=== PATIENT | female | born 1965 ===

== ENCOUNTER 2025-02-26 14:41 | Emergency (ER) | payer BC, SELFPAY ==
--- NOTE | ~2025-02-26 | XR_ITS ---
EXAMINATION: XR CHEST CLINICAL INFORMATION: Chest pain COMPARISON: None available. TECHNIQUE: 2 views of the chest were obtained. FINDINGS: There are coarse lung markings in the mid to lower right lung. Lungs are clear otherwise. Heart and the stomach contours are within normal limits. Left lateral hemidiaphragm is minimally obscured, probably due to subsegmental linear atelectasis. There is degenerative change in right glenohumeral joint with calcific density projecting over the medial right anatomic neck and surgical neck of the humerus. There is also focal increased density projecting in the right subcoracoid region. Mild degenerative changes are present in the bilateral AC joints. No other bony abnormalities are apparent. XR/XR chest 2V IMPRESSION: Coarse markings in the mid and lower right lung are probably chronic in nature, though atypical pneumonia or viral pneumonitis cannot be ruled out. Calcific densities projecting in the region of the right shoulder could represent soft tissue calcifications, intra-articular bodies, or hydroxyapatite deposition disease. Electronically signed by: Ken Bhatti MD 02/26/2025 03:25 PM EDT
--- NOTE | 2025-02-26 14:44 | ECG_ITS ---
Test Reason : cp Blood Pressure : */* mmHG Vent. Rate : 85 BPM Atrial Rate : 85 BPM P-R Int : 156 ms QRS Dur : 72 ms QT Int : 348 ms P-R-T Axes : 61 -31 67 degrees QTcB Int : 414 ms Normal sinus rhythm Left axis deviation Low voltage QRS Septal infarct , age undetermined Abnormal ECG No previous ECGs available Referred By: Generic ED Physician Electronically Signed By: TAJ MILLER
[2025-02-26 15:01] VITALS: BP 119/90; PULSE 88; RESP 18; TEMP 36.8; O2SAT 96; BMI 28.4
--- NOTE | 2025-02-26 15:04 | ED.CHESTPAIN ---
HPI - Chest Pain General Chief Complaint: Chest Pain Stated Complaint: chest pain Time Seen by Provider: 02/26/25 18:36 Source: patient Mode of arrival: ambulatory Limitations: no limitations History of Present Illness ED Provider: Janet Trevino NP HPI narrative: patient is a 59-year-old female with past medical history of asthma who presents emergency department with report of chest pain Is intermittent in nature, localized diffusely throughout the anterior chest described as an intermittent sharp and stabbing pain. Exacerbates with inspiration as well as cough. Has associated sore throat. denies any radiation of the pain, no diaphoresis, no nausea or vomiting, no at exacerbation on exertion. Denies fevers or chills, headache, neck pain, numbness or tingling of the extremity, recent lower extremity redness pain or swelling Related Data Previous Rx's ?Medication ?Instructions ?Recorded amoxicillin 500 mg tablet 1,000 mg (2 x 500 mg) PO TID 5 02/26/25 days #30 tabs azithromycin 250 mg tablet See Rx Instructions PO .COMPLEX #6 02/26/25 tabs Allergies Allergy/AdvReac Type Severity Reaction Status Date / Time mite-Dermatophagoides Allergy Itchy Eyes Verified 02/26/25 15:03 farinae, leno [dust mite - [place]] Seasonal Allergies Allergy Sneezing Verified 02/26/25 15:03 Review of Systems Review of Systems: Yes all other systems are reviewed and are negative [facility] Past Medical History Attestation statement: The following information was validated with the patient. Source: old records reviewed Social History Social History Alcohol intake: former Smoked in Last 30 Days: No Advance Directives: No Advance Directives Information Provided: Yes Physical Exam Vital Signs: Vital Signs: Last Vital Signs Temp 97.6 F 02/26/25 21:26 Pulse 82 02/26/25 21:26 Resp 18 02/26/25 21:26 BP 124/78 02/26/25 21:26 Pulse Ox 99 02/26/25 21:26 O2 Del Method Room Air 02/26/25 21:26 BMI result Body Mass Index 28.4 Appearance: Alert.?Oriented to person, place and time. No acute distress.?Normal affect. Eyes: Pupils equal, round and reactive to light.? ENT: Pharynx normal.?? Neck: Normal inspection.? Neck supple.??No JVD. CVS: Heart sounds normal. Normal heart rate and rhythm.? Pulses normal.?? Respiratory: No respiratory distress.? Lung sounds with rhonchi to the right lower lobe otherwise clear Abdomen: Soft and non-tender. Normoactive bowel sounds. Skin: Skin warm and dry.? Normal skin color.? ?? Extremities: No lower extremity edema.? No calf ttp? Neuro: Moves all extremities spontaneously. Sensation intact bilaterally. CN II-XII intact. No focal neuro deficits. Ambulates with normal steady gait. Course Course Course Narrative: This is an RME: Additional HPI, ROS, PE not included below will be deferred to primary provider. RME assessment and note performed by: Soha Dewey PA-C This is a 59-year-old female, with a history of asthma, who presents emergency department with concerns for chest pain, cough. Former Smoker. reports that the chest pain is sharp in nature, also reporting sore throat. plan: labs, EKG, chest x-ray, further ER evaluation needed. Medications Administered Discontinued Medications Generic Name Dose Route Start Last Admin Trade Name Freq PRN Reason Stop Dose Admin Ibuprofen 600 mg 02/26/25 20:09 02/26/25 20:14 Ibuprofen 600 Mg Tablet PO 02/26/25 20:10 600 mg ONCE ONE Administration Medical Decision Making Medical Decision Making MDM Narrative: Patient is a 59-year-old female with past medical history of asthma who presents to the emergency department for evaluation with complaint of chest pain and cough as per HPI. No evidence of volume overload or shock on exam. EKG without signs of acute ischemia. EKG without evidence of STEMI. Low suspicion for acute PE (Wells low risk), pneumothorax, thoracic aortic dissection, cardiac effusion / tamponade. No recent trauma or injury, no tracheal deviation, unlikely tension pneumothorax. No abdominal tenderness upon palpation, negative Oakes sign, unlikely acute cholecystitis, choledocholithiasis, no fever or jaundice to suggest acute cholangitis, Denies associated acid reflux, no tenderness upon palpation over the epigastrium or left upper quadrant to suggest gastritis, no recent hematemesis history less likely to suggest PUD. Denies excessive alcohol consumption, history of diabetes, lower suspicion acute pancreatitis. she has a mild leukocytosis of 13,400 no anemia or thrombocytopenia. No electrolyte derangement. No TITO. LFTs unremarkable. High sensitive troponin negative x2. Viral serologies are negative. Group a strep testing is negative, exam without findings to suggest RPA/ [employer]. Chest x-ray with coarse markings in the mid and lower right lung thought to be potentially chronic in nature versus atypical pneumonia given history and physical exam will treat as a difficult pneumonia at this time outpatient follow-up with primary care doctor suggested in addition to conservative treatment, course of antibiotics has been sent. All questions answered. Stable for discharge Differential Diagnosis Differential Diagnoses: The differential diagnosis associated with the presentation includes (See narrative above) Admission/Observation Consideration of admission/observation: Escalation of care including admission/observation considered (See narrative above and course narrative for further detail) Lab Data MDM Lab Attestation statement: I reviewed the patient's lab results. 02/26/25 16:33 02/26/25 16:33 Labs: Lab Results 02/26/25 02/26/25 02/26/25 Range/Units 16:33 19:11 20:11 WBC 13.4 H (4.8-10.8) X10*3/uL RBC 4.90 (4.20-5.50) X10*6/uL Hgb 13.9 (12.0-16.0) g/dl Hct 42.4 (37.0-47.0) % MCV 86.5 (80.0-98.0) fL MCH 28.4 (27.0-33.0) pg MCHC 32.8 (31.0-35.0) g/dl RDW 13.1 (11.0-16.0) % Plt Count 339 (160-400) X10*3/uL MPV 9.1 L (9.4-12.3) fL Immature Gran % (Auto) 0.5 H (0.0-0.4) % Neut % (Auto) 70.3 (45-73) % Lymph % (Auto) 18.5 L (20-40) % [place] % (Auto) 8.4 (2-11) % Eos % (Auto) 1.6 (0-4) % Baso % (Auto) 0.7 (0-2) % Lymph # (Auto) 2.5 (1.2-4.9) X10*3/uL [place] # (Auto) 1.1 (0.1-1.2) X10*3/uL Eos # (Auto) 0.2 (0.0-0.4) X10*3/uL Baso # (Auto) 0.1 (0.0-0.2) X10*3/uL Abs Immat Gran (auto) 0.07 H (0.00-0.03) X10*3/uL Absolute Neuts (auto) 9.4 H (2.0-8.3) x10*3/uL Absolute Nucleated RBC 0.000 (0.0-0.012) X10*3/uL Nucleated RBC % (auto) 0.0 (0.0-0.2) /100WBC Sodium 144 (135-145) mmol/L Potassium 4.6 (3.3-5.1) mmol/L Chloride 108 (96-108) mmol/L Carbon Dioxide 28 (22-29) mmol/L Anion Gap 13 (12-20) BUN 16 (9-16) mg/dL Creatinine 0.72 (0.5-1.4) mg/dL Estim Creat Clear Calc 73.0 Estimated GFR > 60 Random Glucose 117 H (60-115) mg/dL Calcium 9.4 (8.4-10.2) mg/dL Magnesium 1.9 (1.6-2.6) mg/dL Total Bilirubin 0.5 (0.0-1.0) mg/dL Direct Bilirubin 0.2 (0.0-0.5) mg/dL AST 18 (5-31) U/L ALT 31 (0-31) U/L Alkaline Phosphatase 83 (39-117) U/L Troponin I High Sens < 2.7 < 2.7 (<3.5-17.0) ng/L Total Protein 6.8 (6.5-8.0) g/dL Albumin 4.2 (3.5-5.0) g/dL Influenza Type A (PCR) NEGATIVE (Negative) Influenza Type B (PCR) NEGATIVE (Negative) RSV RNA Qual (PCR) NEGATIVE (Negative) SARS-CoV-2 RNA (RT-PCR) NEGATIVE (Negative) S. pyogenes GrpA JENIFER Negative (Negative) Independent Interpretation I performed an independent interpretation of an: EKG ( normal sinus rhythm with ventricular rate of 84, QTC 414, no ST-elevation) and Plain X-Ray ( see narrative above) Radiology Impression Discussion of test interpretation with radiology: I have reviewed the radiologist's reading. Radiologist Impression: XR CHEST CLINICAL INFORMATION: Chest pain COMPARISON: None available. TECHNIQUE: 2 views of the chest were obtained. FINDINGS: There are coarse lung markings in the mid to lower right lung. Lungs are clear otherwise. Heart and the stomach contours are within normal limits. Left lateral hemidiaphragm is minimally obscured, probably due to subsegmental linear atelectasis. There is degenerative change in right glenohumeral joint with calcific density projecting over the medial right anatomic neck and surgical neck of the humerus. There is also focal increased density projecting in the right subcoracoid region. Mild degenerative changes are present in the bilateral AC joints. No other bony abnormalities are apparent. XR/XR chest 2V IMPRESSION: Coarse markings in the mid and lower right lung are probably chronic in nature, though atypical pneumonia or viral pneumonitis cannot be ruled out. Calcific densities projecting in the region of the right shoulder could represent soft tissue calcifications, intra-articular bodies, or hydroxyapatite deposition disease. Independent Historian Clinical information obtained from an independent historian. History obtained from or confirmed by: Friend External Record Review External record reviewed: Outpatient record Prescription Management I considered prescription management with: Antibiotic Chronic Conditions Patient?s care impacted by: Other ( see narrative above) Discharge Plan Discharge Clinical Impression: Atypical pneumonia Patient Disposition: Home, Self-Care Instructions: Community Acquired Pneumonia (ED) Additional Instructions: Be sure to rest, stay well hydrated drinking plenty of fluids, eat small frequent meals. Tylenol/ibuprofen can be used as needed for fever/pain. Prescription for antibiotic has been sent to your pharmacy please complete the entire course as prescribed you not skip any doses or stop taking early even if you begin feel better. [id number] cold medications may be helpful as well for symptoms. Saline nasal spray, humidifier may be helpful for nasal congestion. You may return to the emergency department with any new or worsening symptoms or concerns. Follow-up with your primary care provider as needed. Should remain out of school/ work until symptoms have resolved and have been without a fever for 24 hours without the use of Tylenol or ibuprofen. Prescriptions: New amoxicillin 500 mg tablet 1,000 mg PO TID 5 Days Qty: 30 0RF azithromycin 250 mg tablet See Rx Instructions .ROUTE .COMPLEX Qty: 6 0RF Rx Instructions: For 250 mg dose pack: take 500 mg today (day 1), then 250 mg for 4 days (days 2-5) Referrals: Physician,None [Primary Care Provider] - Interventions: ED Discharge Assessment Last Done: 02/26/25 21:26 Discharge Date/Time: 02/26/25 21:28 Print Language: Cymraes
[2025-02-26 16:38] LABS: MANUAL DIFF FLAG NO
[2025-02-26 17:01] LABS: Basophils Absolute Auto 0.1 X10*3/uL (0.0-0.2); Basophils Percent Auto 0.7 % (0-2); Eosinophils Absolute Auto 0.2 X10*3/uL (0.0-0.4); Eosinophils Percent Auto 1.6 % (0-4); Hematocrit 42.4 % (37.0-47.0); Hemoglobin 13.9 g/dl (12.0-16.0); Imm Gran Abs Auto 0.07 X10*3/uL (0.00-0.03); Imm Gran Pct Auto 0.5 % (0.0-0.4); Lymphocytes Absolute Auto 2.5 X10*3/uL (1.2-4.9); Lymphocytes Percent Auto 18.5 % (20-40); Mean Corpuscular HGB Conc 32.8 g/dl (31.0-35.0); Mean Corpuscular Hemoglobin 28.4 pg (27.0-33.0); Mean Corpuscular Volume 86.5 fL (80.0-98.0); Mean Platelet Volume 9.1 fL (9.4-12.3); Monocytes Absolute Auto 1.1 X10*3/uL (0.1-1.2); Monocytes Percent Auto 8.4 % (2-11); Neutrophils Absolute Auto 9.4 x10*3/uL (2.0-8.3); Neutrophils Percent Auto 70.3 % (45-73); Platelet Count 339 X10*3/uL (160-400); Red Cell Distribution Width 13.1 % (11.0-16.0); White Blood Count 13.4 X10*3/uL (4.8-10.8)
[2025-02-26 17:04] LABS: Alanine Aminotransferase 31 U/L (0-31); Albumin Level 4.2 g/dL (3.5-5.0); Alkaline Phosphatase 83 U/L (39-117); Anion Gap 13 (12-20); Aspartate Amino Transferase 18 U/L (5-31); Bilirubin Direct 0.2 mg/dL (0.0-0.5); Bilirubin Total 0.5 mg/dL (0.0-1.0); Blood Urea Nitrogen 16 mg/dL (9-16); Calcium 9.4 mg/dL (8.4-10.2); Carbon Dioxide 28 mmol/L (22-29); Chloride 108 mmol/L (96-108); Estimated Glomerular Filt Rate > 60; Glucose Random 117 mg/dL (60-115); Magnesium 1.9 mg/dL (1.6-2.6); Potassium 4.6 mmol/L (3.3-5.1); Sodium 144 mmol/L (135-145); Total Protein 6.8 g/dL (6.5-8.0)
[2025-02-26 17:08] LABS: Troponin-I High Sensitivity < 2.7 ng/L (<3.5-17.0)
[2025-02-26 17:31] LABS: Influenza A PCR NEGATIVE (Negative); Influenza B PCR NEGATIVE (Negative); Resp Syncy Virus RNA Qual PCR NEGATIVE (Negative); SARS COV2 PCR INHOUSE NEGATIVE (Negative)
[2025-02-26 18:18] VITALS: BP 126/82; PULSE 73; PULSE 75; RESP 16; TEMP 36.6; O2SAT 97
[2025-02-26 19:39] LABS: Troponin-I High Sensitivity < 2.7 ng/L (<3.5-17.0)
[2025-02-26] MEDS: Ibuprofen 600 MG TABLET PO (20:14)
[2025-02-26 20:26] LABS: IDNOW Serial# 6674DD1D; Strep A Nucleic Acid Negative (Negative)
[2025-02-26 21:26] VITALS: BP 124/78; PULSE 82; RESP 18; TEMP 36.4; O2SAT 99
== END 2025-02-26 21:28 | disposition home or self-care (01) ==
PROVIDERS: Nurse Practitioner Family; Physician Assistant Medical; Emergency Provider Emergency Medicine
DX: J18.9 Pneumonia, unspecified organism (principal); R07.89 Other chest pain; J02.9 Acute pharyngitis, unspecified; R05.9 Cough, unspecified; Z87.891 Personal history of nicotine dependence; Z03.818 Encounter for observation for suspected exposure to other biological agents ruled out
CPT/HCPCS: 0241U; 36415; 71046; 80048; 80076; 83735; 84484; 85025; 87651; 93005; 99283; 99285

== ENCOUNTER → 2025-02-26 14:44 | Outpatient (BNV) | payer BC, SELFPAY | PROVIDERS: Emergency Provider Emergency Medicine; Visit Provider Internal Medicine | DX: R94.31 Abnormal electrocardiogram [ECG] [EKG] (principal); R07.9 Chest pain, unspecified | CPT/HCPCS: 93010 ==

== ENCOUNTER → 2025-02-26 15:05 | Outpatient (BNV) | payer BC, SELFPAY | PROVIDERS: Visit Provider Radiology Diagnostic Radiology | DX: R91.8 Other nonspecific abnormal finding of lung field (principal) | CPT/HCPCS: 71046 ==

== ENCOUNTER → 2025-03-14 13:06 | Outpatient (BNVA) | payer OTHER, SELFPAY | PROVIDERS: Visit Provider Physician Assistant Medical | DX: L24.5 Irritant contact dermatitis due to other chemical products (principal) | CPT/HCPCS: 99202 ==

== ENCOUNTER → 2025-03-19 14:01 | Outpatient (BNVA) | payer OTHER, SELFPAY | PROVIDERS: Visit Provider Physician Assistant Medical | DX: L24.5 Irritant contact dermatitis due to other chemical products (principal); Z02.79 Encounter for issue of other medical certificate | CPT/HCPCS: 99213 ==

== ENCOUNTER → 2025-04-11 14:11 | Outpatient (BNVA) | payer OTHER, SELFPAY | PROVIDERS: Visit Provider Physician Assistant Medical | DX: L24.5 Irritant contact dermatitis due to other chemical products (principal) | CPT/HCPCS: 99213 ==

== ENCOUNTER → 2025-05-14 14:06 | Outpatient (BNVA) | payer OTHER, SELFPAY | PROVIDERS: Visit Provider Physician Assistant Medical | DX: L24.5 Irritant contact dermatitis due to other chemical products (principal); Z02.79 Encounter for issue of other medical certificate | CPT/HCPCS: 99213 ==